=== PATIENT | female | born 1965 | race Caucasian/White ===

== ENCOUNTER 2017-03-05 03:04 | Emergency (ER) | payer BC, OTHER ==
--- NOTE | 2017-03-05 03:33 | ED Physician Documentation ---
History of Present Illness - Stated complaint Stated Complaint: RAPID HEART RATE - Chief complaint Chief Complaint: Cardiac - History obtained from History obtained from: Patient - History of Present Illness Timing: Enter time (01:30) Pain level max: 0 Pain level now: 0 Improved by: exertion Worsened by: rest - Additonal information Additional information: sudden onset of rapid palpitations 1:30 AM while at rest. Denies h/o similar symptoms. Review of Systems Cardiac: reports: Palpitations. denies: Chest pain / pressure, Pedal edema Respiratory: reports: Reviewed and negative GI: reports: Reviewed and negative PD PAST MEDICAL HISTORY - Past Medical History Past Medical History: Yes Respiratory: Asthma - Past Surgical History Past Surgical History: Yes General: Cholecystectomy - Present Medications Home Medications: Ambulatory Orders Medication Instructions Recorded Confirmed Albuterol 2 puffs PO DAILY 03/05/17 03/05/17 - Allergies Allergies/Adverse Reactions: Allergies Allergy/AdvReac Type Severity Reaction Status Date / Time No Known Drug Allergies Allergy Verified 03/05/17 03:11 - Social History Does the pt smoke?: Yes Smoking Status: Current every day smoker Does the pt drink ETOH?: Yes Does the pt have substance abuse?: No - Immunizations Immunizations are current?: Yes PD ED PE NORMAL - Vitals Vital signs reviewed: Yes - General General: Alert and oriented X 3, No acute distress, Well developed/nourished - Cardiac Cardiac: No murmur - Respiratory Respiratory: No respiratory distress, Clear bilaterally - Abdomen Abdomen: Soft, Non tender - Derm Derm: Normal color, Warm and dry - Extremities Extremities: No edema PD ED PE EXPANDED - Cardiac Cardiac: Tachy, Irregularly irregular Results - Vitals Vitals: Vital Signs - 24 hr 03/05/17 03/05/17 03/05/17 03:07 03:12 03:16 Temperature 36.2 C L Heart Rate 148 H 152 H Respiratory 20 15 Rate Blood Pressure 143/81 H 94/78 Blood Pressure 118/85 H [Left] Blood Pressure 143/81 H [Right] O2 Saturation 98 95 03/05/17 03/05/17 03/05/17 03:48 04:16 04:26 Temperature Heart Rate 116 H 106 H 124 H Respiratory 14 21 20 Rate Blood Pressure 112/66 115/72 137/104 H Blood Pressure [Left] Blood Pressure [Right] O2 Saturation 95 95 95 03/05/17 03/05/17 03/05/17 04:31 04:42 04:50 Temperature 36.9 C Heart Rate 117 H 95 132 H Respiratory 16 Rate Blood Pressure 114/96 H 113/66 101/75 Blood Pressure [Left] Blood Pressure [Right] O2 Saturation 95 03/05/17 03/05/17 03/05/17 05:03 05:18 06:15 Temperature Heart Rate 93 89 124 H Respiratory 20 18 Rate Blood Pressure 104/61 100/61 Blood Pressure [Left] Blood Pressure [Right] O2 Saturation 96 03/05/17 03/05/17 03/05/17 06:35 06:43 06:53 Temperature Heart Rate 92 146 H 71 Respiratory 20 21 20 Rate Blood Pressure 115/87 H 103/71 96/71 Blood Pressure [Left] Blood Pressure [Right] O2 Saturation 100 99 96 03/05/17 07:46 Temperature Heart Rate 73 Respiratory 16 Rate Blood Pressure 107/65 Blood Pressure [Left] Blood Pressure [Right] O2 Saturation 97 Oxygen O2 Source Room air - EKG (time done) No standard instances Rate: Rate (enter#) (158) Rhythm: Atrial fibrillation [place]: Normal Ischemia: ST elevation c/w repol - Labs Labs: Laboratory Tests 03/05/17 03/05/17 03/05/17 03:20 03:20 03:20 WBC 9.6 RBC 4.39 Hgb 14.2 Hct 40.8 MCV 93.1 MCH 32.4 H MCHC 34.8 RDW 12.1 Plt Count 184 MPV 9.9 Neut # 6.0 Lymph # 2.3 [place] # 0.9 Eos # 0.3 Baso # 0.1 Absolute Nucleated RBC 0.00 Nucleated RBCs 0.1 Sodium 139 Potassium 3.3 L Chloride 108 Carbon Dioxide 23 Anion Gap 8.0 BUN 16 Creatinine 0.6 Estimated GFR (MDRD) 106 Glucose 118 H Calcium 9.3 Troponin I < 0.04 - Rads (name of study) chest xray Radiology: Prelim report reviewed, See rad report Procedures - Cardioversion Attempt 1 Time of attempt: 06:30 Indication: Tachyarrhythmia Risks, benefits, alternatives explained to: Pt Prep: IV, O2, front desk monitor, Pulse ox, Airway equip Meds: Morphine, Propofol CS via: Pads, AP approach Sync: Biphasic, 200j Post cardioversion rhythm: NSR Complications: No: Contact burn, Apnea, Hypotension Performed by: ED MD PD MEDICAL DECISION MAKING - ED course Complexity details: reviewed results, re-evaluated patient, considered differential, d/w patient, d/w family ED course: KWAKU with improvement in rate after cardizem 20mg and then cardizem 25 mg, but did not convert to NSR and rate gradually worsened back to 130s-150s range. Risks and benefits discussed relating to cardioversion and patient agrees with this approach. Morphine 2mg IV given by RN and I then titrated propofol to total of 50mg IV, synchronized cardioversion 200J resulted in NSR on first attempt. She rapidly became increasingly awake and alert and was discharged asymptomatic 1 hour later. She has a CHADS2 score of 0 and a [id number] score of 1 Departure - Departure Disposition: 01 Home, Self Care Clinical Impression: Atrial fibrillation Qualifiers: Atrial fibrillation type: paroxysmal Qualified Code(s): I48.0 - Paroxysmal atrial fibrillation Condition: Good Instructions: ED Afib Comments: Follow up with your primary care physician, call to make next available appointment Discharge Date/Time: 03/05/17 07:48
[2017-03-05] MEDS ORDERED: diltiaZEM INJ 5 MG/ML VIAL IVP STA ×2 (03:38→04:21)
[2017-03-05] MEDS ORDERED: diltiaZEM INJ 5 MG/ML VIAL ONE ×2 (03:42→04:27)
[2017-03-05 03:44] LABS: BASOPHILS # (AUTO) 0.1 10^3/uL (0.0-0.1); BASOPHILS % (AUTO) 0.7 %; EOSINOPHILS # (AUTO) 0.3 10^3/uL (0.0-0.7); EOSINOPHILS % (AUTO) 3.2 %; HCT - HEMATOCRIT 40.8 % (37.0-47.0); HGB - HEMOGLOBIN 14.2 g/dL (12.0-16.0); LYMPHOCYTES # (AUTO) 2.3 10^3/uL (1.5-3.5); LYMPHOCYTES % (AUTO) 23.8 %; MEAN CORPUSCULAR HEMOGLOBIN 32.4 pg (27.0-31.0); MEAN CORPUSCULAR HGB CONC 34.8 g/dL (32.0-36.0); MEAN CORPUSCULAR VOLUME 93.1 fL (81.0-99.0); MEAN PLATELET VOLUME 9.9 fL (7.9-10.8); MONOCYTES # (AUTO) 0.9 10^3/uL (0.0-1.0); MONOCYTES % (AUTO) 9.5 %; NEUTROPHILS % (AUTO) 62.8 %; NUCLEATED RED BLOOD CELLS AUTO 0.1 /100WBC; RED BLOOD COUNT 4.39 10^6/uL (4.20-5.40); RED CELL DISTRIBUTION WIDTH 12.1 % (12.0-15.0); UNCORRECTED WHITE BLOOD COUNT 9.6 x10^3/uL; WHITE BLOOD COUNT 9.6 x10^3/uL (4.8-10.8)
[2017-03-05 03:51] LABS: CALCIUM 9.3 mg/dL (8.5-10.3); CREATININE 0.6 mg/dL (0.4-1.0); POTASSIUM 3.3 mmol/L (3.5-5.0)
--- NOTE | 2017-03-05 04:29 | XRAY Preliminary Report ---
Exam: XR Chest 2 View PA/LAT IMPRESSION: COPD without acute process seen in the chest. [facility] SITE ID: [id number]
--- NOTE | 2017-03-05 04:32 | XRAY Report ---
EXAM: CHEST RADIOGRAPHY EXAM DATE: 03/05/2017 04:20 AM. CLINICAL HISTORY: Palpitations, smoker. COMPARISON: None. TECHNIQUE: 2 views. FINDINGS: Lungs/Pleura: Large volumes. No focal opacities evident. No pneumothorax or pleural effusion. Mediastinum: Within exam limitations, cardiomediastinal contour is normal. Other: None. IMPRESSION: COPD without acute process seen in the chest. [facility] Referring Provider Line: [phone] SITE ID: [id number]
[2017-03-05] MEDS ORDERED: MORPHINE 2 MG/ML SYRINGE IVP STA (05:55)
[2017-03-05] MEDS ORDERED: PROPOFOL 200 MG/20 ML VIAL IVP STA (05:55)
[2017-03-05] MEDS ORDERED: MORPHINE 2 MG/ML SYRINGE ONE (06:14)
[2017-03-05] MEDS ORDERED: PROPOFOL 200 MG/20 ML VIAL IVP ONE (06:15)
[2017-03-05] MEDS ORDERED: SODIUM CHLORIDE 0.9% 1,000 ML IV STA (06:18)
[2017-03-05 07:49] VITALS: BP 107/65
== END 2017-03-05 07:48 | disposition home or self-care (01) ==
LOC: ED 03:04
DX: I48.0 Paroxysmal atrial fibrillation (principal); J45.909 Unspecified asthma, uncomplicated; F17.200 Nicotine dependence, unspecified, uncomplicated
CPT/HCPCS: 36415; 71020; 80048; 84484; 85025; 92960; 93005; 94770; 96374; 96376; 99152; 99284

== ENCOUNTER 2017-03-10 10:04 | Outpatient (CLI) | payer OTHER ==
[2017-03-10 13:55] LABS: ALBUMIN/GLOBULIN RATIO 1.5 (1.0-2.2); BILIRUBIN,TOTAL 0.5 mg/dL (0.2-1.0); BUN - BLOOD UREA NITROGEN 10 mg/dL (6-20); CALCIUM 9.4 mg/dL (8.5-10.3); CARBON DIOXIDE - CO2 25 mmol/L (21-32); CHLORIDE 106 mmol/L (101-111); CHOL/HDL RATIO 4.3 (<4.4); CHOLESTEROL 228 mg/dL; CREATININE 0.6 mg/dL (0.4-1.0); GFR - MDRD 106 (>89); GLUCOSE 98 mg/dL (70-100); HDL CHOLESTEROL 53 mg/dL; SODIUM 139 mmol/L (135-145); TOTAL PROTEIN 7.6 g/dL (6.7-8.2); TRIGLYCERIDES 77 mg/dL; VLDL CHOLESTEROL 15 mg/dL
[2017-03-10 13:56] LABS: HEMOGLOBIN A1C 0.55 g/dL
[2017-03-10 14:14] LABS: EOSINOPHILS # (AUTO) 0.1 10^3/uL (0.0-0.7); EOSINOPHILS % (AUTO) 1.9 %; HGB - HEMOGLOBIN 14.2 g/dL (12.0-16.0); LYMPHOCYTES # (AUTO) 1.1 10^3/uL (1.5-3.5); MEAN CORPUSCULAR HEMOGLOBIN 31.8 pg (27.0-31.0); MEAN CORPUSCULAR HGB CONC 34.5 g/dL (32.0-36.0); MEAN CORPUSCULAR VOLUME 92.2 fL (81.0-99.0); MONOCYTES # (AUTO) 0.4 10^3/uL (0.0-1.0); NEUTROPHILS % (AUTO) 64.1 %; RED BLOOD COUNT 4.45 10^6/uL (4.20-5.40); RED CELL DISTRIBUTION WIDTH 12.2 % (12.0-15.0); UNCORRECTED WHITE BLOOD COUNT 4.7 x10^3/uL; WHITE BLOOD COUNT 4.7 x10^3/uL (4.8-10.8)
== END 2017-03-10 10:05 | disposition home or self-care (01) ==
LOC: LAB.WCP 10:04
PROVIDERS: ATTEND Family Medicine
DX: Z00.00 Encounter for general adult medical examination without abnormal findings (principal)
CPT/HCPCS: 36415; 80053; 80061; 83036; 84443; 85025

== ENCOUNTER 2017-03-17 08:25 | Outpatient (CLI) | payer OTHER | END 2017-03-17 08:26 | disposition home or self-care (01) | LOC: DI 08:25 | PROVIDERS: ATTEND Family Medicine | DX: I48.0 Paroxysmal atrial fibrillation (principal) | CPT/HCPCS: 93306 ==

== ENCOUNTER 2017-04-10 10:43 | Outpatient (CLI) | payer OTHER ==
[2017-04-12 01:59] LABS: TEST RESULT REPORT (())
[2017-04-13 00:02] LABS: HSV 1/2 IGM INDEX <0.90 INDEX (()); HSV 2 IGG INDEX <0.90 INDEX (())
== END 2017-04-10 10:44 | disposition home or self-care (01) ==
LOC: LAB.WCP 10:43
PROVIDERS: ATTEND Family Medicine
DX: Z00.00 Encounter for general adult medical examination without abnormal findings (principal)
CPT/HCPCS: 36415; 81599; 86592; 86694; 86695; 86696; 86803; 87389

== ENCOUNTER 2017-04-14 07:09 | Outpatient (CLI) | payer OTHER ==
--- NOTE | 2017-04-17 15:47 | Mammography Report ---
DIGITAL SCREENING MAMMOGRAM: 04/14/2017 CLINICAL INDICATION: A 51-year-old, for screening. COMPARISON: 01/2016, 12/2015, 02/2009, 07/2008, 06/2008. TECHNIQUE: Routine CC and MLO projections were obtained of the breasts. FINDINGS: The breasts demonstrate scattered fibroglandular densities bilaterally. A few punctate, ty pically benign calcifications are present. Intramammary lymph nodes are stable. No suspicious masses, clustered microcalcifications, or regions of architectural distortion are identified. IMPRESSION: BENIGN FINDINGS. RECOMMENDATION: ROUTINE ANNUAL SCREENING UNLESS OTHERWISE CLINICALLY INDICATED. BIRADS CATEGORY 2-BENIGN FINDINGS. STANDARD QUALIFYING STATEMENTS 1. This examination was reviewed with the aid of Computer-Aided Detection (CAD). 2. A negative or benign imaging report should not delay biopsy if clinically suspicious findings are present. Consider surgical consultation if warranted. More than 5% of cancers are not identified by i maging. 3. Dense breasts may obscure an underlying neoplasm. JOB #: [id number] EXT JOB #:[id number]
== END 2017-04-14 07:10 | disposition home or self-care (01) ==
LOC: DI 07:09
PROVIDERS: ATTEND Family Medicine
DX: Z12.31 Encounter for screening mammogram for malignant neoplasm of breast (principal)
CPT/HCPCS: 77067

== ENCOUNTER 2020-01-11 21:20 | Outpatient (CLI) | payer OTHER | END 2020-01-11 21:21 | disposition critical access hospital (66) | LOC: EMS 21:20 | PROVIDERS: ATTEND Surgery | DX: R06.02 Shortness of breath (principal); R05 Cough | CPT/HCPCS: A0425; A0427 ==

== ENCOUNTER 2020-01-11 21:40 | Emergency (ER) | payer OTHER ==
[2020-01-11] MEDS ORDERED: DEXAMETHASONE 10 MG/ML VIAL PO STA (22:25)
[2020-01-11] MEDS ORDERED: CHERRY SYRUP 10 ML UDC PO ONE (22:25)
--- NOTE | 2020-01-11 22:48 | XRAY Report ---
Reason: soa Procedure Date: 01/11/2020 Accession Number: [id number] / [id number] Procedure: XR - Chest 1 View X-Ray CPT Code: 75654 Final Report FULL RESULT: EXAM: CHEST RADIOGRAPHY EXAM DATE: 01/11/2020 10:41 PM. CLINICAL HISTORY: Shortness of breath. Cough. COMPARISON: CHEST 2 VIEW PA/LAT 03/05/2017 3:58 AM. TECHNIQUE: 1 view. FINDINGS: Lungs/Pleura: No focal opacities evident. No pulmonary edema. No pleural effusion. No pneumothorax. Mediastinum: Within exam limitations, the cardiomediastinal contour is normal. Other: None. IMPRESSION: No evidence of acute cardiopulmonary process. [facility]
--- NOTE | 2020-01-11 23:06 | ED Physician Documentation ---
PD HPI DYSPNEA - Stated complaint Stated Complaint: SOA - Chief complaint Chief Complaint: Resp - History obtained from History obtained from: Patient - History of Present Illness Timing - onset: How many weeks ago (2) Timing - onset during: Rest Timing - duration: Weeks (2) Timing - details: Gradual onset, Still present Inciting event(s): Allergic rxn/anaphylaxis Improved by: Inhaler/neb Worsened by: Exertion, Allergens Associated symptoms: Cough, Wheezing, Chest pain / discomfort. No: Fever, Hemoptysis, Palpitations, Diaphoresis, Bilateral edema, Unilateral edema, Anxiety Similar symptoms before: Diagnosis (copd) Recently seen: Not recently seen - Additional information Additional information: 4-year-old female with a history of COPD has developed increasing shortness of breath over the past 2 weeks. She is using her albuterol inhaler and her Brio and she is continuing to have issues with increasing shortness of breath. She has not had fever she has not had productive cough she does have allergens and feels this is likely secondary to pollen. She does indicate that she quit smoking in September and 2 weeks later had to go on a course of prednisone which helped tremendously. Review of Systems Constitutional: denies: Fever, Chills, Myalgias, Fatigue Eyes: denies: Decreased vision Ears: denies: Ear pain Nose: denies: Rhinorrhea / runny nose, Congestion Throat: denies: Sore throat Cardiac: reports: Chest pain / pressure. denies: Palpitations, Pedal edema, Calf pain Respiratory: reports: Dyspnea, Cough, Wheezing GI: denies: Abdominal Pain, Nausea, Vomiting : denies: Dysuria, Frequency Skin: denies: Rash Musculoskeletal: denies: Neck pain, Back pain, Extremity pain Neurologic: denies: Generalized weakness, Focal weakness, Numbness PD PAST MEDICAL HISTORY - Past Medical History Respiratory: Asthma - Past Surgical History Past Surgical History: Yes General: Cholecystectomy - Present Medications Home Medications: Ambulatory Orders Medication Instructions Recorded Confirmed Albuterol Sulfate [Albuterol 2 puffs DAILY 01/11/20 01/11/20 Sulfate Hfa] Fluticasone/Vilanterol [Breo 1 puffs DAILY 01/11/20 01/11/20 Ellipta 100-25 Mcg INH] predniSONE [Prednisone] 40 mg PO DAILY #10 tablet 01/11/20 - Allergies Allergies/Adverse Reactions: Allergies Allergy/AdvReac Type Severity Reaction Status Date / Time No Known Drug Allergies Allergy Verified 01/11/20 21:50 - Social History Does the pt smoke?: Yes Smoking Status: Current every day smoker Does the pt drink ETOH?: Yes Does the pt have substance abuse?: No - Immunizations Immunizations are current?: Yes PD ED PE NORMAL - Vitals Vital signs reviewed: Yes (hypertensive ) - General General: Alert and oriented X 3, No acute distress, Well developed/nourished - HEENT HEENT: Atraumatic, PERRL, EOMI, Ears normal, Moist mucous membranes, Pharynx benign, Dentition benign - Neck Neck: Supple, no meningeal sign, No bony TTP - Cardiac Cardiac: RRR, No murmur - Respiratory Respiratory: No respiratory distress, Other (diminished breath sounds. 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 ) Computer interpretation: Agree with computer - Rads (name of study) chest Radiology: Prelim report reviewed (Impression: No evidence of acute cardiopulmonary process.), EMP read indepedently, See rad report PD MEDICAL DECISION MAKING - ED course Complexity details: reviewed old records, reviewed results, re-evaluated patient, considered differential, d/w patient ED course: 54-year-old female with a history of COPD has exacerbation that appears to be pollen related. She is administered dexamethasone 10 mg orally and we will place her on a short course of prednisone. I did not see indication for a course of antibiotic and this patient. Departure - Departure Disposition: 01 Home, Self Care Clinical Impression: COPD with acute exacerbation Condition: Stable Instructions: ED Reactive Airway Disease Follow-Up: Lula Nielsen PA-C [Primary Care Provider] - Prescriptions: predniSONE [Prednisone] 40 mg PO DAILY #10 tablet
[2020-01-11 23:26] VITALS: BP 148/81
== END 2020-01-11 23:30 | disposition home or self-care (01) ==
LOC: EDUNIT# → EDBD → ED 21:40
DX: J44.1 Chronic obstructive pulmonary disease with (acute) exacerbation (principal); Z87.891 Personal history of nicotine dependence
CPT/HCPCS: 71045; 81599; 93005; 99284; A9270

== ENCOUNTER 2020-01-30 09:23 | Outpatient (CLI) | payer OTHER ==
[~2020-01-30 09:23] MED LIST: ALBUTEROL 1 PUFF INH PRN; ALBUTEROL NEB 2.5 MG/3 ML INH ONE
== END 2020-01-30 09:24 | disposition home or self-care (01) ==
LOC: RT 09:23
PROVIDERS: ATTEND Physician Assistant Medical
DX: J44.9 Chronic obstructive pulmonary disease, unspecified (principal)
CPT/HCPCS: 94060

== ENCOUNTER 2021-06-08 11:32 | Outpatient (CLI) | payer OTHER ==
--- NOTE | 2021-06-09 09:35 | Mammography Report ---
BILATERAL DIGITAL SCREENING MAMMOGRAM 3D/2D: 06/08/2021 CLINICAL: Routine screening. Comparison is made to exams dated: 04/14/2017 mammogram, 01/29/2016 mammogram, 01/04/2016 mammogram - [facility], 02/11/2009 ultrasound, and 02/11/2009 mammogram - [facility]. Th ere are scattered fibroglandular elements in both breasts. There are benign vascular calcifications in the right breast. No significant masses, calcifications, or other findings are seen in either breast. There has been no significant interval change. IMPRESSION: BENIGN There is no mammographic evidence of malignancy. A 1 year screening mammogram is recommended. This exam was interpreted at Station ID: [id number]. NOTE: For mammograms, a report in lay terms will be sent to the patient. Approximately 15% of breast malignancies will not be visualized mammographically. In the management of a palpable breast mass, a negative mammogram must not discourage biopsy of a clinically suspicious lesion. Electronically Signed By: Price Strickland M.D. ddp/penrad:06/08/2021 13:45:35 ACR BI-RADS Category 2: Benign Finding(s) 3342F PARENCHYMAL PATTERN: (A) - The breast(s) demonstrate(s) scattered fibroglandular densities. BI-RADS CATEGORY: (2) - 2 RECOMMENDATION: (ANNUAL) - Recommend routine annual screening mammography. [id number] 1 year screening LATERALITY: (B)
== END 2021-06-08 11:33 | disposition home or self-care (01) ==
LOC: DI.N 11:32
PROVIDERS: ATTEND Internal Medicine
DX: Z12.31 Encounter for screening mammogram for malignant neoplasm of breast (principal)

== ENCOUNTER 2023-03-05 07:26 | Outpatient (CLI) | payer OTHER ==
--- NOTE | 2023-03-05 09:20 | Ultrasound Report ---
PROCEDURE: Abdomen Complete INDICATIONS: RUQ AND RLQ PAIN TECHNIQUE: Real-time scanning was performed of the abdominal and retroperitoneal organs, with image documentatio n. COMPARISON: None. FINDINGS: Liver: Liver is normal in size and homogeneous in echotexture. Gallbladder: Surgically absent. Biliary ducts: Intrahepatic bile ducts are non-dilated. Extrahepatic bile duct caliber measures 5.4 mm. Normal is 6-7 mm or less in diameter, or 10 mm or less post-cholecystectomy. Pancreas: Visualized portions of the pancreas are sonographically normal. Spleen: Spleen is normal in size and homogeneous in echotexture. Kidneys: Kidneys are normal in size and echotexture. Right kidney measures 10.9 cm longNo hydroneph rosis or nephrolithiasis. No solid masses. No complex renal cystic lesions which require follow-up. Aorta: Visualized aorta is normal in caliber at less than 3 cm. Iliacs: Proximal common iliac arteries are normal in caliber at less than 2.5 cm. IVC: Intrahepatic inferior vena cava is patent. Miscellaneous: No free abdominal fluid. IMPRESSION: No acute process. Reviewed by: Santo Nichols MD on 03/05/2023 9:19 AM PDT Approved by: Santo Nichols MD on 03/05/2023 9:19 AM PDT Station ID: [id number]
== END 2023-03-05 07:27 | disposition home or self-care (01) ==
LOC: DI 07:26
PROVIDERS: ATTEND Student in an Organized Health Care Education/Training Program
DX: R10.31 Right lower quadrant pain (principal); R10.32 Left lower quadrant pain